=== PATIENT | female | born 1985 ===

== ENCOUNTER 2020-10-26 16:41 | Emergency (ER) | payer OTHER ==
[~2020-10-26] VITALS: Ht 165.1 cm; Wt 68.9 kg
[~2020-10-26 16:41] MED LIST: CODE1TAB37 PO; COLACE100 MG PO; NAPR500T14 PO; PRENATAL CAPLE1 EACH PO
== END 2020-10-26 23:09 | disposition home or self-care (01) ==
LOC: ER 16:41
DX: B02.9 Zoster without complications (principal); K59.09 Other constipation; N20.0 Calculus of kidney; N39.0 Urinary tract infection, site not specified; Z11.52 Encounter for screening for COVID-19

== ENCOUNTER 2021-01-07 18:39 | Emergency (ER) | payer OTHER ==
[~2021-01-07] VITALS: Ht 165.1 cm; Wt 70.8 kg
== END 2021-01-07 21:38 | disposition home or self-care (01) ==
LOC: ER 18:39
DX: J30.89 Other allergic rhinitis (principal); Z03.818 Encounter for observation for suspected exposure to other biological agents ruled out

== ENCOUNTER 2021-10-02 07:59 | Emergency (ER) | payer OTHER ==
[~2021-10-02] VITALS: Ht 165.1 cm; Wt 69.4 kg
[2021-10-02] MEDS ORDERED: KETO10TA2 PO (11:59)
[2021-10-02] MEDS ORDERED: NORFLEX100MG PO (11:59)
== END 2021-10-02 13:52 | disposition home or self-care (01) ==
LOC: ER 07:59
DX: M54.50 Low back pain, unspecified (principal); M79.604 Pain in right leg; Z91.018 Allergy to other foods

== ENCOUNTER 2024-11-04 08:50 | Day surgery (SDC) | payer OTHER ==
[2024-11-04 07:52] LABS: BASO % 0.8 % (0.1-1.2); EOS # 0.21 (0.04-0.54); EOS % 3.3 % (0.7-7.0); HEMATOCRIT 33.1 % (34.1-44.9); HEMOGLOBIN 11.1 g/dL (11.2-15.7); LYMPH # 1.77 (1.18-3.74); LYMPH % 27.8 % (19.3-53.1); MEAN CORPUSCULAR HEMOGLOBIN 29.4 pg (25.6-32.2); MONO # 0.43 (0.24-0.82); MONO % 6.8 % (4.7-12.5); NEUT # 3.89 (1.56-6.13); NEUT % 61.1 % (34.0-71.1); PLATELET COUNT 397 K/uL (163-369); RED BLOOD COUNT 3.78 M/uL (3.93-5.22); RED CELL DISTRIBUTION WIDTH 14.7 % (11.6-14.4)
[2024-11-04 07:53] LABS: PH,URINE 5.5 (5.0-8.0); URINE APPEARANCE Clear; URINE BILIRRUBIN Negative (NEGATIVE); URINE BLOOD Small; URINE COLOR Yellow; URINE GLUCOSE Negative (NEGATIVE); URINE KETONE Negative (NEGATIVE); URINE LEUKOCYTE Negative; URINE NITRATE Negative; URINE PROTEIN Negative (NEGATIVE); URINE UROBILINOGEN 0.2 E.U./dl
[2024-11-04 07:55] LABS: URINE BACTERIA 31.8 uL (0.0-1933); URINE EPITHELIAL CELLS 9.6 uL (0.0-38.8); URINE RBC 24.1 uL (0.0-20.8); URINE WBC 2.6 uL (0.0-23.2)
[2024-11-04 08:09] LABS: INR < 0.93; PARTIAL THROMBOPLASTIN TIME 23.1 SECONDS (22.0-34.0); PROTHROMBIN TIME 10.2 SECONDS (9.0-11.5)
[2024-11-04 08:37] LABS: ALBUMIN 3.5 gm/dL (3.4-5.0); BILIRUBIN TOTAL 0.29 mg/dL (0.3-1.2); CALCIUM 9.4 mg/dL (8.5-10.1); CREATININE SERUM 0.51 mg/dL (0.55-1.02); GFR 135.69; GLOBULINA 3.6 G/DL (2.4-3.5); POTASSIUM 4.08 mEq/L (3.5-5.1); TOTAL PROTEIN 7.1 gm/dL (6.4-8.2)
[~2024-11-04 08:50] MED LIST changes: +KETO10TA2 PO; +NORFLEX100MG PO; +VITAMINS D
[2024-11-04] MEDS ORDERED: CEFAZOLIN SODIUM 1,000 MG VIAL ONE (09:58)
[2024-11-04] MEDS ORDERED: POVIDONE-IODINE 118 ML BOTT TOP ONE (13:44)
[2024-11-04] MEDS ORDERED: DOXYCYCLINE HY100 M2 PO (14:31)
[2024-11-04] MEDS ORDERED: IBU600 MG PO (14:31)
== END 2024-11-04 17:05 | disposition home or self-care (01) ==
LOC: CIR.AMB 08:50
PROVIDERS: ATTEND Obstetrics & Gynecology
DX: O03.4 Incomplete spontaneous abortion without complication (principal); Z91.040 Latex allergy status; Z91.018 Allergy to other foods